=== PATIENT | male | born 1990 | race Caucasian/White ===

== ENCOUNTER 2023-08-24 23:24 | Emergency (ER) | payer BC ==
[~2023-08-24] VITALS: Ht 167.6 cm; Wt 64.0 kg
== END 2023-08-25 01:22 | disposition home or self-care (01) ==
LOC: ED 23:24
DX: J11.1 Influenza due to unidentified influenza virus with other respiratory manifestations (principal); R11.0 Nausea; Z20.822 Contact with and (suspected) exposure to COVID-19

== ENCOUNTER 2024-01-28 02:34 | Emergency (ER) | payer BC ==
[~2024-01-28] VITALS: Ht 172.7 cm; Wt 62.1 kg
[2024-01-28] MEDS ORDERED: ZITHROMAX250 MG PO ×2 (06:30→07:24)
[2024-01-28] MEDS ORDERED: MUCINEX ER600 MG PO ×2 (06:30→07:24)
[2024-01-28] MEDS ORDERED: GUAIFENESIN 600 MG TAB ER PO ONE (06:35)
== END 2024-01-28 06:53 | disposition home or self-care (01) ==
LOC: ED 02:34
DX: J06.9 Acute upper respiratory infection, unspecified (principal); Z20.822 Contact with and (suspected) exposure to COVID-19